=== PATIENT | male | born 1990 | race Two or more races ===

== ENCOUNTER 2018-08-28 21:40 | Emergency (ER) | payer SELFPAY ==
[~2018-08-28] VITALS: Ht 172.7 cm; Wt 79.4 kg
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
[2018-08-28] MEDS ORDERED: IBUPROFEN 400 MG TABLET ONE (22:04)
[2018-08-28] MEDS: IBUPROFEN 400 MG TABLET PO ONE (22:12)
--- NOTE | 2018-08-28 22:17 | NUR ---
PT TAKEN TO CT VIA WC Addendum: 08/28/18 at 2217 by RNEETTAONO EDIT: TAKEN TO XRAY
--- NOTE | 2018-08-28 23:04 | NUR ---
Patient discharged to home in stable condition. Written and verbal after care instructions given. Patient verbalizes understanding of instruction.
[2018-08-28 23:05] VITALS: BP 137/84
== END 2018-08-28 23:12 | disposition home or self-care (01) ==
LOC: ER 21:51
DX: R07.89 Other chest pain (principal); M25.511 Pain in right shoulder; M25.532 Pain in left wrist; M54.6 Pain in thoracic spine; F17.200 Nicotine dependence, unspecified, uncomplicated; V49.49XA Driver injured in collision with other motor vehicles in traffic accident, initial encounter; Y93.89 Activity, other specified; Y92.413 State road as the place of occurrence of the external cause; Y99.8 Other external cause status
CPT/HCPCS: 71045-TC; 72074-TC; 73030-TC; 73110; A4606; Z7610